=== PATIENT | female | born 1940 | race Caucasian/White ===

== ENCOUNTER 2019-05-03 07:39 | Day surgery (SDC) | payer MEDICARE ==
[~2019-05-03 07:39] MED LIST: Lactated Ringers 1,000 ML IV SCH
[2019-05-03] MEDS ORDERED: Midazolam 1 MG/ML 2 ML SDV ONE (09:02)
[2019-05-03] MEDS ORDERED: Propofol 200 MG/20 ML SDV ONE (09:02)
[2019-05-03] MEDS ORDERED: fentaNYL 100 MCG/2 ML SDV ONE (09:02)
--- NOTE | 2019-05-03 11:17 | OR ---
PREOPERATIVE DIAGNOSIS: Family history of colon cancer - father. POSTOPERATIVE DIAGNOSIS: Normal colonoscopic exam. PROCEDURE PROPOSED AND PROCEDURE DONE: Total flexible colonoscopy. INDICATION: This is a 78-year-old female who comes in for colonic surveillance due to a family history of father with colon cancer that was diagnosed in his late 70s. She denies any symptomatology, and she has never had any polyps herself. TECHNIQUE: The patient was brought to the endoscopy suite and placed in the left lateral decubitus position. She was sedated per [employer] with propofol. The flexible video colonoscope was then passed transanally and under visualization advanced to the cecum. Examination revealed normal ascending, transverse, descending colon. Sigmoid colon revealed moderate diverticulosis, and the rectum was normal. There was no evidence of any polyps, colitis, or other abnormalities, and the scope was then withdrawn. The patient tolerated procedure well. FINAL IMPRESSION: 1. Essentially normal colonoscopic exam with sigmoid diverticulosis. 2. Family history of colon cancer - father. PLAN: I suggest that she consider a repeat exam in 5 years at which point she would be 83, but it would be health-dependent and whether she wants to go through with it again at that the age. SCM: 05/03/2019 09:42:43 MODL: 05/03/2019 09:57:34 /[id number]
== END 2019-05-03 10:45 | disposition home or self-care (01) ==
LOC: VM.SDS 07:39
PROVIDERS: ATTEND Surgery
DX: Z12.11 Encounter for screening for malignant neoplasm of colon (principal); I10 Essential (primary) hypertension; E78.5 Hyperlipidemia, unspecified; F32.9 Major depressive disorder, single episode, unspecified; D50.9 Iron deficiency anemia, unspecified; M19.90 Unspecified osteoarthritis, unspecified site; K58.0 Irritable bowel syndrome with diarrhea; Z80.0 Family history of malignant neoplasm of digestive organs; Z91.018 Allergy to other foods; Z88.8 Allergy status to other drugs, medicaments and biological substances; Z79.899 Other long term (current) drug therapy; Z79.82 Long term (current) use of aspirin
CPT/HCPCS: 00811; G0105; J2250; J2704; J3010; J7120

== ENCOUNTER 2022-05-13 14:55 | Emergency (ER) | payer MEDICARE ==
[2022-05-13 17:30] LABS: CHLORIDE,CL 104 mmol/L (98-107); SODIUM,NA 142 mmol/L (136-145)
[2022-05-13 17:45] LABS: ANION GAP 13.6 mmol/L (5-15); ESTIMATED GFR 45 mL/min (>=60)
[2022-05-13] MEDS ORDERED: Sodium Chloride 0.9% 10 ML Syringe FLUSH PRN (18:12)
== END 2022-05-13 18:55 | disposition home or self-care (01) ==
LOC: VM.ED 14:55
DX: S06.0X0A Concussion without loss of consciousness, initial encounter (principal); S00.83XA Contusion of other part of head, initial encounter; E78.00 Pure hypercholesterolemia, unspecified; I10 Essential (primary) hypertension; Z91.018 Allergy to other foods; Z88.8 Allergy status to other drugs, medicaments and biological substances; Z79.82 Long term (current) use of aspirin; Z79.899 Other long term (current) drug therapy; Z20.822 Contact with and (suspected) exposure to COVID-19; W19.XXXA Unspecified fall, initial encounter
CPT/HCPCS: 36415; 70450; 80053; 81001; 83605; 85025; 87086; 93005; 93010; 99284; U0002

== ENCOUNTER 2022-05-17 10:48 | Inpatient (IN) | payer MEDICARE ==
[2022-05-17] MEDS ORDERED: ALPRAZolam 0.25 MG Tab PO PRN (15:31)
[2022-05-17] MEDS ORDERED: Propranolol 60 MG Cap.ER PO ONE (17:27)
[2022-05-17] MEDS: amLODIPine 2.5 MG Tab PO SCH (18:08)
[2022-05-17] MEDS: traZODone 50 MG Tab PO SCH (20:25)
[2022-05-17] MEDS: levETIRAcetam 500 MG Tab PO SCH (20:25)
[2022-05-17] MEDS: Nortriptyline 25 MG Cap PO SCH (20:26)
[2022-05-18] MEDS: Lactobacillus Rhamnosus GG (Probiotic) Cap PO SCH (08:32)
[2022-05-18] MEDS: Cholecalciferol (Vitamin D3) 25 MCG Tab PO SCH (08:32)
[2022-05-18] MEDS: Citalopram 20 MG Tab PO SCH (08:32)
[2022-05-18] MEDS: atorvaSTATin 10 MG Tab PO SCH (08:32)
[2022-05-18] MEDS: Propranolol 60 MG Cap.ER PO SCH (08:32)
[2022-05-18] MEDS: amLODIPine 2.5 MG Tab PO SCH (08:33)
[2022-05-18] MEDS: Potassium Chloride 10 MEQ Tab.ER PO SCH (08:33)
[2022-05-18] MEDS: Furosemide 20 MG Tab PO SCH (08:33)
[2022-05-18] MEDS: levETIRAcetam 500 MG Tab PO SCH ×2 (08:33→20:08)
[2022-05-18] MEDS: Cyanocobalamin (Vitamin B12) 1,000 MCG Tab PO SCH (08:39)
[2022-05-18] MEDS: Calcium Carbonate/Vitamin D3 1250 MG-5 MCG Tab PO SCH (11:02)
[2022-05-18] MEDS: Acetaminophen 500 MG Tab PO PRN (18:32)
[2022-05-18] MEDS: Nortriptyline 25 MG Cap PO SCH (20:08)
[2022-05-18] MEDS: traZODone 50 MG Tab PO SCH (20:08)
[2022-05-19] MEDS: Propranolol 60 MG Cap.ER PO SCH (08:23)
[2022-05-19] MEDS: amLODIPine 2.5 MG Tab PO SCH (08:23)
[2022-05-19] MEDS: Lactobacillus Rhamnosus GG (Probiotic) Cap PO SCH (08:23)
[2022-05-19] MEDS: atorvaSTATin 10 MG Tab PO SCH (08:23)
[2022-05-19] MEDS: levETIRAcetam 500 MG Tab PO SCH ×2 (08:24→20:00)
[2022-05-19] MEDS: Cholecalciferol (Vitamin D3) 25 MCG Tab PO SCH (08:24)
[2022-05-19] MEDS: Furosemide 20 MG Tab PO SCH (08:24)
[2022-05-19] MEDS: Potassium Chloride 10 MEQ Tab.ER PO SCH (08:24)
[2022-05-19] MEDS: Citalopram 20 MG Tab PO SCH (08:24)
[2022-05-19] MEDS: Calcium Carbonate/Vitamin D3 1250 MG-5 MCG Tab PO SCH (08:25)
[2022-05-19] MEDS: Cyanocobalamin (Vitamin B12) 1,000 MCG Tab PO SCH (08:25)
[2022-05-19] MEDS: Nortriptyline 25 MG Cap PO SCH (20:00)
[2022-05-19] MEDS: traZODone 50 MG Tab PO SCH (20:00)
[2022-05-20] MEDS: Lactobacillus Rhamnosus GG (Probiotic) Cap PO SCH (08:24)
[2022-05-20] MEDS: Potassium Chloride 10 MEQ Tab.ER PO SCH (08:24)
[2022-05-20] MEDS: atorvaSTATin 10 MG Tab PO SCH (08:25)
[2022-05-20] MEDS: Calcium Carbonate/Vitamin D3 1250 MG-5 MCG Tab PO SCH (08:25)
[2022-05-20] MEDS: amLODIPine 2.5 MG Tab PO SCH (08:26)
[2022-05-20] MEDS: Cholecalciferol (Vitamin D3) 25 MCG Tab PO SCH (08:27)
[2022-05-20] MEDS: Citalopram 20 MG Tab PO SCH (08:28)
[2022-05-20] MEDS: Furosemide 20 MG Tab PO SCH (08:28)
[2022-05-20] MEDS: levETIRAcetam 500 MG Tab PO SCH ×2 (08:29→20:06)
[2022-05-20] MEDS: Propranolol 60 MG Cap.ER PO SCH (08:29)
[2022-05-20] MEDS: Cyanocobalamin (Vitamin B12) 1,000 MCG Tab PO SCH (08:30)
[2022-05-20] MEDS: Nortriptyline 25 MG Cap PO SCH (20:06)
[2022-05-20] MEDS: traZODone 50 MG Tab PO SCH (20:07)
[2022-05-21] MEDS: Lactobacillus Rhamnosus GG (Probiotic) Cap PO SCH (09:22)
[2022-05-21] MEDS: atorvaSTATin 10 MG Tab PO SCH (09:22)
[2022-05-21] MEDS: Calcium Carbonate/Vitamin D3 1250 MG-5 MCG Tab PO SCH (09:22)
[2022-05-21] MEDS: Cholecalciferol (Vitamin D3) 25 MCG Tab PO SCH (09:22)
[2022-05-21] MEDS: Furosemide 20 MG Tab PO SCH (09:22)
[2022-05-21] MEDS: Propranolol 60 MG Cap.ER PO SCH (09:22)
[2022-05-21] MEDS: Cyanocobalamin (Vitamin B12) 1,000 MCG Tab PO SCH (09:22)
[2022-05-21] MEDS: Citalopram 20 MG Tab PO SCH (09:23)
[2022-05-21] MEDS: Potassium Chloride 10 MEQ Tab.ER PO SCH (09:23)
[2022-05-21] MEDS: amLODIPine 2.5 MG Tab PO SCH (09:23)
[2022-05-21] MEDS: Nortriptyline 25 MG Cap PO SCH (20:01)
[2022-05-21] MEDS: traZODone 50 MG Tab PO SCH (20:01)
[2022-05-22] MEDS: atorvaSTATin 10 MG Tab PO SCH (08:56)
[2022-05-22] MEDS: Lactobacillus Rhamnosus GG (Probiotic) Cap PO SCH (08:57)
[2022-05-22] MEDS: Potassium Chloride 10 MEQ Tab.ER PO SCH (08:57)
[2022-05-22] MEDS: amLODIPine 2.5 MG Tab PO SCH (08:57)
[2022-05-22] MEDS: Furosemide 20 MG Tab PO SCH (08:57)
[2022-05-22] MEDS: Calcium Carbonate/Vitamin D3 1250 MG-5 MCG Tab PO SCH (08:57)
[2022-05-22] MEDS: Cholecalciferol (Vitamin D3) 25 MCG Tab PO SCH (08:57)
[2022-05-22] MEDS: Propranolol 80 MG Cap.ER PO SCH (08:58)
[2022-05-22] MEDS: Citalopram 20 MG Tab PO SCH (08:58)
[2022-05-22] MEDS: Cyanocobalamin (Vitamin B12) 1,000 MCG Tab PO SCH (08:59)
[2022-05-22] MEDS: traZODone 50 MG Tab PO SCH (20:06)
[2022-05-22] MEDS: Nortriptyline 25 MG Cap PO SCH (20:06)
[2022-05-23] MEDS: atorvaSTATin 10 MG Tab PO SCH (09:33)
[2022-05-23] MEDS: Calcium Carbonate/Vitamin D3 1250 MG-5 MCG Tab PO SCH (09:33)
[2022-05-23] MEDS: Potassium Chloride 10 MEQ Tab.ER PO SCH (09:33)
[2022-05-23] MEDS: Cholecalciferol (Vitamin D3) 25 MCG Tab PO SCH (09:33)
[2022-05-23] MEDS: Lactobacillus Rhamnosus GG (Probiotic) Cap PO SCH (09:34)
[2022-05-23] MEDS: Furosemide 20 MG Tab PO SCH (09:34)
[2022-05-23] MEDS: Citalopram 20 MG Tab PO SCH (09:34)
[2022-05-23] MEDS: Cyanocobalamin (Vitamin B12) 1,000 MCG Tab PO SCH (09:35)
[2022-05-23] MEDS: amLODIPine 2.5 MG Tab PO SCH (09:35)
[2022-05-23] MEDS: Propranolol 80 MG Cap.ER PO SCH (09:35)
[2022-05-23] MEDS: traZODone 50 MG Tab PO SCH (20:27)
[2022-05-23] MEDS: Nortriptyline 25 MG Cap PO SCH (20:28)
[2022-05-24] MEDS: Acetaminophen 500 MG Tab PO PRN (07:20)
[2022-05-24] MEDS: Potassium Chloride 10 MEQ Tab.ER PO SCH (09:38)
[2022-05-24] MEDS: atorvaSTATin 10 MG Tab PO SCH (09:39)
[2022-05-24] MEDS: Cyanocobalamin (Vitamin B12) 1,000 MCG Tab PO SCH (09:39)
[2022-05-24] MEDS: Furosemide 20 MG Tab PO SCH (09:39)
[2022-05-24] MEDS: Calcium Carbonate/Vitamin D3 1250 MG-5 MCG Tab PO SCH (09:39)
[2022-05-24] MEDS: Lactobacillus Rhamnosus GG (Probiotic) Cap PO SCH (09:39)
[2022-05-24] MEDS: Cholecalciferol (Vitamin D3) 25 MCG Tab PO SCH (09:39)
[2022-05-24] MEDS: amLODIPine 2.5 MG Tab PO SCH (09:40)
[2022-05-24] MEDS: Citalopram 20 MG Tab PO SCH (09:40)
[2022-05-24] MEDS: Propranolol 80 MG Cap.ER PO SCH (09:40)
== END 2022-05-24 10:55 | disposition home health service (06) | DRG 84 ==
LOC: VM.MS 11:15
PROVIDERS: ADMIT Internal Medicine; ATTEND Internal Medicine
DX: S06.6X9A Traumatic subarachnoid hemorrhage with loss of consciousness of unspecified duration, initial encounter (principal); W19.XXXA Unspecified fall, initial encounter; I72.0 Aneurysm of carotid artery; F41.9 Anxiety disorder, unspecified; M85.80 Other specified disorders of bone density and structure, unspecified site; E78.5 Hyperlipidemia, unspecified; D64.9 Anemia, unspecified; I12.9 Hypertensive chronic kidney disease with stage 1 through stage 4 chronic kidney disease, or unspecified chronic kidney disease; D50.9 Iron deficiency anemia, unspecified; G47.00 Insomnia, unspecified; N18.30 Chronic kidney disease, stage 3 unspecified; Z79.899 Other long term (current) drug therapy; Z20.822 Contact with and (suspected) exposure to COVID-19
CPT/HCPCS: 97110-GP; 97112-GP; 97116-GP; 97161-GP; A9270-GY; U0002